=== PATIENT | female | born 1960 | race Caucasian/White ===

== ENCOUNTER 2022-12-24 17:31 | Outpatient (CLI) | payer OTHER ==
--- NOTE | 2022-12-25 09:13 | XRAY Report ---
PROCEDURE: Finger(s) LT INDICATIONS: FRACTURE OF LEFT RING FINGER TECHNIQUE: AP hand, 2 views of the third finger(s) acquired. COMPARISON: None. FINDINGS: Bones: No fractures or dislocations. No suspicious bony lesions. Soft tissues: No suspicious soft tissue calcifications or masses. Swelling of the third phalanx. IMPRESSION: No acute bony abnormality. Reviewed by: Edgardo Brantley on 12/25/2022 9:11 AM PDT Approved by: Edgardo Brantley on 12/25/2022 9:11 AM PDT Station ID: [id number]
== END 2022-12-24 23:59 | disposition home or self-care (01) ==
LOC: DI.S 17:31
PROVIDERS: ATTEND Emergency Medicine
DX: S62.605A Fracture of unspecified phalanx of left ring finger, initial encounter for closed fracture (principal)